=== PATIENT | male | born 1935 | race Caucasian/White ===

== ENCOUNTER 2016-05-11 14:03 | Day surgery (SDC) | payer OTHER ==
[2016-05-11 09:26] LABS: HEMATOCRIT 24.1 % (42.0-52.0); HEMOGLOBIN 7.3 g/dL (14.0-18.0); MCH 24.1 PG (27-31); MCHC 30.3 g/dL (33-37); MCV 79.5 FL (81-99); MPV 9.6 FL (7.4-10.4); RBC 3.03 XMIL (4.7-6.1)
[2016-05-11 10:25] LABS: ALBUMIN 3.6 g/dL (3.5-5.0); CALCIUM 8.8 mg/dL (8.8-10.2); TOTAL BILIRUBIN 0.27 mg/dL (0.20-1.00); TOTAL PROTEIN 6.3 g/dL (6.3-8.3)
--- NOTE | 2016-05-11 15:36 | Diag Imaging Result Document ---
PROCEDURE NAME: CHEST-2 VIEWS - 05/11/2016 2 VIEWS OF THE CHEST: FINDINGS: There is a pacemaker on the left. There is no evidence of acute cardiac or pulmonary disease. Compared to the previous study of 01/24/2016 there has been no significant change in the appearance of the chest. IMPRESSION: No acute disease.
[2016-05-11] MEDS ORDERED: NS 500 ML IV SCH (16:00)
[2016-05-11 16:15] LABS: RETIC% 1.92 % (0.8-2.1); RETIC-HE 21.3 PG (28.2-36.6)
[2016-05-11 16:29] LABS: INR 0.99; PROTIME 10.4 Seconds (9.2-11.7); PTT 27.1 Seconds (22.0-36.0)
[2016-05-11 17:18] LABS: FERRITIN 5 ng/mL (30-400)
[2016-05-11] MEDS ORDERED: LASIX IV ONE (18:11)
--- NOTE | 2016-05-11 18:58 | HISTORY AND PHYSICAL ---
CHIEF COMPLAINT: Weakness. Mr. Arreaga, an 81-year-old, white gentleman with multiple medical problems including coronary artery disease status post [place] and stent placement, congestive heart failure, diabetes mellitus, hypertension, blood-loss anemia, history of CVA, expressive aphasia, gastritis. The patient was not doing well last 2 weeks. The patient was feeling weak and dizzy, at times, lightheaded. I evaluated patient a few days ago in my office. His hemoglobin was around 8. Patient's son called me. The patient was weak and had a fall yesterday, near syncopal episode. He did have dyspnea on exertion, dizziness when he tries to get up. I got his blood work done and advised him to come to the office for evaluation. The patient had vague chest pain. He was complaining of at times blood in the stool but patient is very vague historian. I reviewed his blood test results which did reveal drop in hemoglobin which was 7.3, hematocrit 24.1. Patient does have compromised cardiopulmonary status. The patient was symptomatic. I evaluated the patient and decided to admit him for further care. The patient denied any nosebleed. Denied any headache. He does get dizzy at times, vertigo. No sore throat. Mild cough. No expectoration. No typical chest pain, orthopnea or PND. Denied abdominal pain, nausea, vomiting. No diarrhea. At times, blood in the stool. Polyuria, polydipsia. No major hypoglycemic episode. The patient does have leg swelling. No focal weakness. The patient does have history of CVA with some left-sided weakness and mild expressive aphasia. ALLERGIES: No known drug allergy. HOME MEDICATION: Patient is on insulin, Brilinta, aspirin, Lipitor, Lexapro, multivitamin, Prilosec, Actos. I do not have updated list of his medicines. PAST MEDICAL HISTORY: Coronary artery disease status post stent placement on Brilinta, diabetes mellitus on insulin, hypertension, hyperlipidemia, orthostatic hypotension, diastolic heart failure, peripheral neuropathy, history of CVA with expressive aphasia and residual minimal left- sided weakness, BPH status post TURP, chronic kidney disease, peptic ulcer disease, history of pneumonia. PERSONAL HISTORY: , lives with the . Nonsmoker. Denied alcohol or substance abuse. Fairly independent in activities of daily living. FAMILY HISTORY: Significant for sister with hypertension, CHF, diabetes. Daughter with diabetes and had bariatric surgery. REVIEW OF SYSTEMS: As per HPI. PHYSICAL EXAMINATION: GENERAL: Elderly white gentleman who does look pale in mild distress. VITAL SIGNS: Blood pressure 148/42, pulse 59, respiration 18, temperature 98.3 degrees. SKIN: Senile turgor. No rash or petechiae. HEENT: Head atraumatic, normocephalic. Pale conjunctivae. Anicteric sclerae. Extraocular muscle movement normal. Fundus cannot be penetrated. Good oral hygiene. No tonsillopharyngeal congestion or exudate. Ears and nose benign. NECK: Supple. No JVD, thyromegaly or lymphadenopathy. CHEST: Bilateral good air entry present. Bibasilar crepitation. No rales. CARDIOVASCULAR: S1 and S2 heard, 2/6 systolic murmur at the apex. ABDOMEN: Soft, globular. Bowel sounds present. No organomegaly or mass. EXTREMITIES: No cyanosis, clubbing. Minimal swelling in both the lower limbs. BLACK TOP PAVER OPERATOR: Alert, awake, able to move all 4 limbs. Patient does have minimal left-sided weakness, expressive aphasia. LAB DATA: Hemoglobin 7.3, hematocrit 24.1, WBC count 6.28, platelet count 371,000. Reticulocyte count 1.92. PT/INR 0.99. PTT 27.1, BUN 24, creatinine 1.2. ProBNP was 1039. Vitamin B12 more than 2000. Ferritin was 5. Serum iron was 12. Patient does have iron-deficiency anemia most likely, chronic blood loss. CONSIDERATION: Symptomatic anemia, most likely chronic blood loss. The patient is under care of feeder/folder. Because of his anticoagulation he did not have any GI workup done. We will transfuse him 2 units packed RBC. Monitor patient. Follow up with feeder/folder and follow up with chief recordist. Other problems includes diabetes mellitus, history of CVA, hyperlipidemia. PLAN: Overall plan discussed at length with the patient and family and they are in agreement.
[2016-05-11] MEDS ORDERED: LIPITOR PO SCH (21:00)
[2016-05-12 06:08] LABS: MANUAL DIFF NEEDED? NO
[2016-05-12 06:20] LABS: BASO% 0.3 % (0.0-0.8); EOS# 0.05 X1000 (0.0-0.7); EOS% 0.7 % (0.0-10.0); HEMATOCRIT 31.6 % (42.0-52.0); HEMOGLOBIN 10.2 g/dL (14.0-18.0); LYMPH# 0.71 X1000 (1.2-3.4); LYMPH% 10.1 % (20.5-51.1); MCH 25.3 PG (27-31); MCHC 32.3 g/dL (33-37); MCV 78.4 FL (81-99); MONO# 0.56 X1000 (0.11-0.59); NEUT% 80.9 % (42.2-75.2); PLT 318 X1000 (130-400); RBC 4.03 XMIL (4.7-6.1)
[2016-05-12 06:45] LABS: AGAP 12; ALBUMIN 3.2 g/dL (3.5-5.0); ALKALINE PHOSPHATASE 62 U/L (32-122); BUN 21 mg/dL (8-22); CALCIUM 8.6 mg/dL (8.8-10.2); CHLORIDE 101 mmol/L (98-107); COSMO 282; GOT 21 U/L (10-34); GPT 13 U/L (10-44); MAGNESIUM 1.9 mg/dL (1.5-2.7); POTASSIUM 4.5 mmol/L (3.5-5.1); SODIUM 138 mmol/L (136-145); TCO2 25 mmol/L (25-35); TOTAL BILIRUBIN 0.27 mg/dL (0.20-1.00); TOTAL PROTEIN 5.6 g/dL (6.3-8.3)
[2016-05-12] MEDS ORDERED: INSULIN PEN NEEDLES ONE (07:35)
[2016-05-12 07:45] VITALS: BP 154/50
[2016-05-12] MEDS ORDERED: CENTRUM SILVER PO SCH (09:00)
[2016-05-12] MEDS ORDERED: CALTRATE PLUS TABLET PO SCH (09:00)
[2016-05-12] MEDS ORDERED: LEXAPRO PO SCH (09:00)
[2016-05-12] MEDS ORDERED: LASIX PO SCH (09:00)
[2016-05-12] MEDS ORDERED: BRILINTA PO SCH (09:00)
[2016-05-12] MEDS ORDERED: INSULIN DEGLUDEC SUBQ SCH (09:00)
--- NOTE | 2016-05-12 11:00 | PROGRESS NOTE ---
DATE: 05/12/2016 SUBJECTIVE: Mr. Arreaga is doing better. He received 2 units of packed RBC. Patient tolerated it well. No unusual chest pain, shortness of breath. His exercise tolerance improved. Patient found to have significant iron deficiency anemia. His ferritin level was 5. I am going to refer him to Dr. Mccray for iron treatment. Because of his stent anticoagulation, patient is waiting for endoscopy. The patient is being followed up by crew team member. Once the patient is evaluated by biofuels technology manager, I am planning to discharge patient home today. No fever or chills. PHYSICAL EXAMINATION: Vital Signs: Vital signs noted. Neck: Supple. No JVD. Lungs: Bilateral good air entry present. CVS: S1 and S2 heard. Abdomen: Soft, globular. Bowel sounds present. Extremities: No cyanosis, clubbing. No acute DVT. HANDICRAFTS TEACHER: Alert, awake. Able to move all 4 limbs. Patient does have some expressive aphasia. LABS: Posttransfusion hemoglobin 10.2, hematocrit 31.6. Electrolytes were fairly benign. PLAN: Overall plan discussed with the patient and family. They are in agreement.
== END 2016-05-12 09:17 | disposition home or self-care (01) ==
LOC: DIRADM 14:03 → INF 14:03 → UNDOADMOB 14:03 → 4N 14:19 → DIRADM 14:19 → UNDODISOB 05-12 09:17 → INF 05-12 09:17
PROVIDERS: ATTEND Internal Medicine
DX: D50.9 Iron deficiency anemia, unspecified (principal); I25.10 Atherosclerotic heart disease of native coronary artery without angina pectoris; Z95.5 Presence of coronary angioplasty implant and graft; E11.22 Type 2 diabetes mellitus with diabetic chronic kidney disease; I25.2 Old myocardial infarction; I13.0 Hypertensive heart and chronic kidney disease with heart failure and stage 1 through stage 4 chronic kidney disease, or unspecified chronic kidney disease; N18.9 Chronic kidney disease, unspecified; I50.32 Chronic diastolic (congestive) heart failure; I69.320 Aphasia following cerebral infarction; K29.70 Gastritis, unspecified, without bleeding; R42 Dizziness and giddiness; M79.89 Other specified soft tissue disorders; I69.354 Hemiplegia and hemiparesis following cerebral infarction affecting left non-dominant side; G62.9 Polyneuropathy, unspecified; Z79.899 Other long term (current) drug therapy; Z79.4 Long term (current) use of insulin; Z79.02 Long term (current) use of antithrombotics/antiplatelets; Z79.82 Long term (current) use of aspirin; Z82.49 Family history of ischemic heart disease and other diseases of the circulatory system; Z83.3 Family history of diabetes mellitus
CPT/HCPCS: 71020; 80053; 82270; 82550; 82607; 82728; 82746; 82948; 83540; 83735; 83880; 84484; 85025; 85027; 85045; 85610; 85730; 86850; 86900; 86901; 86920; 94761; J1940; J7040; P9016

== ENCOUNTER 2016-06-03 11:43 | Inpatient (IN) ==
[2016-06-03 12:09] LABS: HEMATOCRIT 32.5 % (42.0-52.0); HEMOGLOBIN 10.1 g/dL (14.0-18.0); MCH 26.3 PG (27-31); MCHC 31.1 g/dL (33-37); MCV 84.6 FL (81-99); MPV 9.6 FL (7.4-10.4); RBC 3.84 XMIL (4.7-6.1)
[2016-06-03 12:44] LABS: AGAP 11; ALBUMIN 3.5 g/dL (3.5-5.0); ALKALINE PHOSPHATASE 98 U/L (32-122); BUN 27 mg/dL (8-22); CALCIUM 8.5 mg/dL (8.8-10.2); CHLORIDE 102 mmol/L (98-107); COSMO 292; GOT 25 U/L (10-34); GPT 25 U/L (10-44); POTASSIUM 5.4 mmol/L (3.5-5.1); SODIUM 140 mmol/L (136-145); TCO2 27 mmol/L (25-35); TOTAL BILIRUBIN 0.18 mg/dL (0.20-1.00); TOTAL PROTEIN 6.5 g/dL (6.3-8.3)
--- NOTE | 2016-06-03 16:58 | EKG Report ---
Test Performed on : 06/03/2016 4:28:49 PM Test Reason : Rectal bleed Blood Pressure : / mmHG Vent. Rate : 060 BPM Atrial Rate : 061 BPM P-R Int : 232 ms QRS Dur : 186 ms QT Int : 512 ms P-R-T Axes : 000 -79 087 degrees QTc Int : 512 ms AV dual-paced rhythm with prolonged AV conduction Abnormal ECG When compared with ECG of 24-JAN-2016 21:26, Electronic ventricular pacemaker has replaced Junctional rhythm. Confirmed by Hawk LEW, Steven Rivera ([id number]) on 06/04/2016 9:44:39 PM
[2016-06-03] MEDS: NS 1,000 ML IV SCH (17:51)
--- NOTE | 2016-06-03 18:34 | Diag Imaging Result Document ---
PROCEDURE NAME: CHEST-2 VIEWS - 06/03/2016 FRONTAL AND LATERAL CHEST, 2 VIEWS COMPARISON: 05/11/16 FINDINGS: The lungs are well expanded. Heart is not enlarged. The vessels are not distended. No pleural effusions. No pneumonia. The patient has a left-sided pacemaker. The appearance of the chest is unchanged from that of the prior exam. IMPRESSION: No acute abnormality.
[2016-06-03 18:37] LABS: HEMATOCRIT 32.3 % (42.0-52.0); HEMOGLOBIN 10.2 g/dL (14.0-18.0)
[2016-06-03 18:42] LABS: INR 0.99; PROTIME 10.4 Seconds (9.2-11.7); PTT 28.2 Seconds (22.0-36.0)
[2016-06-03 18:49] LABS: MAGNESIUM 2.1 mg/dL (1.5-2.7)
--- NOTE | 2016-06-03 20:49 | HISTORY AND PHYSICAL ---
CHIEF COMPLAINT: Rectal bleed. HISTORY OF PRESENT ILLNESS: An 81-year-old, white gentleman complaining of bleeding per rectum going on for 3 days, daily 3-4 times. Patient was feeling weak, tired, no energy. Getting short of breath easily. The patient claims he was feeling same way when he had symptomatic anemia a few days ago. I sent patient to hospital for blood work. His hemoglobin was around 10, hematocrit 32. Conveyed the results to the patient and family. The patient came to the office for evaluation because of the extreme fatigue, shortness of breath with exertion. I evaluated patient in the office. The patient was short of breath with exertion, feeling weak, getting dizzy when he tries to get up. I did the rectal exam and patient did have stool mixed with blood. Because of fresh blood in the rectum, patient was symptomatic, I decided to admit the patient for further care. While patient was in x-ray, he did have a weak spell. The patient does have problem with rectal bleed off and on. The patient is under care of technology solutions architect. Problem with patient is he does have coronary artery disease and stent placement. The patient is on Brilinta. The family is concerned about stopping Brilinta though his trading manager cleared him to stop it and have procedure done. I requested Gastroenterology consult with Dr. Chavarria. The patient denied any nosebleed. No gum bleeding or hematuria. The patient did have vague chest pain yesterday which subsided today. No unusual cough, expectoration, orthopnea or hemoptysis. No sore dysphagia or odynophagia. No abdominal pain. Oral intake was fair. No dysuria or hematuria. Mild leg swelling. Arthritic pain in the knee. No heat or cold intolerance. No major hypoglycemic episode. No major weight loss or weight gain. Denied being depressed, but claims concern about bleeding. No further history available at this time. ALLERGIES: No known drug allergy. HOME MEDICATIONS: Aspirin, Lipitor, multivitamin, vitamin B12. Lexapro, Lasix, Tresiba, Prilosec, Actos, MiraLAX, Brilinta. PAST MEDICAL HISTORY: 1. Significant for coronary artery disease. Recent stent placement. 2. Diabetes mellitus. 3. Gastritis and reflux disease. 4. Recurrent GI bleed. 5. Blood-loss anemia. The patient is being followed up by doubling machine operator on iron supplement. 6. Situational depression. 7. Congestive heart failure. 8. History of cerebrovascular accident. 9. Mild expressive aphasia. 10. Osteoarthritis. PERSONAL HISTORY: . Lives with the . Nonsmoker. Denied alcohol or substance abuse. FAMILY HISTORY: Noncontributory. PHYSICAL EXAMINATION: GENERAL: Elderly, white gentleman in mild distress. VITAL SIGNS: Blood pressure 170/59, pulse 69, respiration 18, temperature 97.5 degrees. SKIN: Normal turgor. No rash or petechiae. HEENT: Head atraumatic, normocephalic. [place] conjunctivae. Anicteric sclerae. Extraocular muscle movement normal. Fundus cannot be penetrated. Good oral hygiene. No tonsillopharyngeal congestion or exudate. Ears and nose benign. NECK: Supple. No JVD, thyromegaly or lymphadenopathy. CHEST: Bibasilar crepitation. No rales or rhonchi. CARDIOVASCULAR: S1 and S2 heard. 2/6 systolic murmur at the apex. ABDOMEN: Soft, globular. Bowel sounds present. No organomegaly or mass. RECTAL: I did rectal exam in my office. There was soft stool mixed with fresh blood. EXTREMITIES: No cyanosis, clubbing. Bilateral leg swelling. No acute DVT. STEM MAKER: Alert, awake, answering questions fairly well. The patient does have expressive aphasia. LABORATORY DATA/DIAGNOSTICS: Hemoglobin 10.2, hematocrit 32.3, WBC count 6.86, platelet count 307,000. PT/INR 0.99, PTT 28.2. Mild hyperkalemia. BUN 27. Creatinine 1.1. Because of chest pain, I did cardiac isoenzymes and those were benign. Magnesium level 2.1. Chest x-ray: No acute abnormality. Patient EKG: Revealed pacemaker rhythm. No acute ST-T wave changes. CONSIDERATION: 1. Lower gastrointestinal bleed. 2. Chest pain. Electrocardiogram did not show any acute interval changes. 3. Diabetes mellitus. 4. Hypertension. 5. Gastritis and reflux disease. 6. History of cerebrovascular accident. PLAN: Admit the patient. Serial hemoglobin and hematocrit. Gastroenterology consult. Monitor Accu-Chek. Fall precaution. Overall plan discussed at length with the patient and family. They are in agreement. cc: Jarvis Andrade MD
[2016-06-03] MEDS: BRILINTA PO SCH (20:57)
[2016-06-03] MEDS: LIPITOR PO SCH (20:57)
[2016-06-03] MEDS: MIRALAX PO SCH (20:57)
[2016-06-03] MEDS: PROTONIX IV SCH (20:57)
[2016-06-04 01:13] LABS: HEMATOCRIT 29.3 % (42.0-52.0); HEMOGLOBIN 9.3 g/dL (14.0-18.0)
[2016-06-04] MEDS: HUMALOG SUBQ SCH ×5 (04:43→21:30)
[2016-06-04 06:58] LABS: BASO% 0.3 % (0.0-0.8); EOS# 0.23 X1000 (0.0-0.7); EOS% 3.6 % (0.0-10.0); HEMATOCRIT 33.1 % (42.0-52.0); HEMOGLOBIN 10.5 g/dL (14.0-18.0); IMM GRAN# 0.02 X1000 (0.0-0.04); IMM GRAN% 0.3 % (0.0-0.5); LYMPH# 1.01 X1000 (1.2-3.4); LYMPH% 15.9 % (20.5-51.1); MANUAL DIFF NEEDED? YES; MCH 26.4 PG (27-31); MCHC 31.7 g/dL (33-37); MCV 83.4 FL (81-99); MONO% 7.9 % (1.7-9.3); MPV 10.4 FL (7.4-10.4); PLT 296 X1000 (130-400); RBC 3.97 XMIL (4.7-6.1)
--- NOTE | 2016-06-04 07:04 | PROGRESS NOTE ---
DATE: 06/04/2016 SUBJECTIVE: Mr. Arreaga is doing fair. He denied any significant bleeding per rectum after admission. He denied any nausea or vomiting. Blood sugar was low. The patient does feel hungry. Plan is to consider doing upper and lower GI endoscope on Tuesday. No typical chest pain. OBJECTIVE: His vital signs noted. Neck supple. No JVD. Lungs: Bilateral good air entry present. CVS: S1 and S2 heard. 2/6 systolic murmur at the apex. Abdomen soft, globular. Bowel sounds present. NAILER HAND: Alert, awake, able to move all 4 limbs. CONSIDERATION: The patient admitted with 1. Lower gastrointestinal bleed. 2. Weakness. 3. Known case of coronary artery disease. 4. Diabetes mellitus. His Accu-Chek results reviewed. EKG and chest x-ray noted. I did stop his Actos. The patient is on Brilinta. The student assistance counselor evaluated the patient. We will continue current treatment. Monitor hemoglobin and hematocrit. I am going to put him on GI soft diet. Plan is to prepare him for colonoscopy on Tuesday. We will check postural blood pressure and heart rate for precaution. Monitor him for hypoglycemia. Overall plan discussed with the patient and son. They are in agreement. cc: Jarvis Andrade MD
[2016-06-04 07:16] LABS: AGAP 7; ALKALINE PHOSPHATASE 70 U/L (32-122); BUN 19 mg/dL (8-22); CHLORIDE 106 mmol/L (98-107); COSMO 282; GOT 21 U/L (10-34); GPT 19 U/L (10-44); POTASSIUM 4.8 mmol/L (3.5-5.1); SODIUM 140 mmol/L (136-145); TCO2 27 mmol/L (25-35); TOTAL BILIRUBIN 0.31 mg/dL (0.20-1.00); TOTAL PROTEIN 5.6 g/dL (6.3-8.3)
[2016-06-04 07:40] LABS: EOS 2 % (1-10); HYPOCHROM 1+; LYMPHS 16 % (21-51); MONO 10 % (1-9)
[2016-06-04] MEDS: LASIX PO SCH (08:21)
[2016-06-04] MEDS: LEXAPRO PO SCH (08:21)
[2016-06-04] MEDS: VITAMIN B-12 SL SCH (08:21)
[2016-06-04] MEDS: BRILINTA PO SCH ×2 (08:22→21:31)
[2016-06-04] MEDS: CALTRATE 600 + D PO SCH (08:22)
--- NOTE | 2016-06-04 12:45 | CONSULTATION ---
DATE OF CONSULTATION: 06/04/2016 REASON FOR REFERRAL: Anemia, GI bleed. HISTORY OF PRESENT ILLNESS: This is an 81-year-old, white gentleman who has had some issues with anemia over the last several months. He was admitted to the hospital last month. At that time the bleeding had resolved and it was felt best to proceed with endoscopy due to his recent cardiovascular stent placement and on Brilinta but over the last week patient has had bleeding per rectum off and on. He has started to have symptoms of extreme fatigue, shortness of breath and chest pain. He presented to Dr. Andrade office yesterday and was evaluated. On rectal exam, he was found to have noted blood in the stool. He did have a weak spell where he almost passed out. He was sent over for admission for further evaluation. The patient had a myocardial infarction in January and had a cardiac stent placed by Dr. Wright. The patient has been following with Dr. Mccray over the last month. He has had 2 units of blood and he has had IV iron. Patient reports dizziness and lightheadedness. He reports symptoms of chest pain and shortness of breath. He denies nausea or vomiting. Denies hematemesis. He denies hematuria. PAST MEDICAL HISTORY: Coronary artery disease with recent stent placement in January, diabetes, history of GI bleed. History of anemia, history of depression, congestive heart failure. History of CVA and expressive aphasia. Osteoarthritis. ALLERGIES: No known drug allergies. HOME MEDICATIONS: Vitamin B 12 daily. Lexapro 5 mg daily. Vitamin C 1000 mg daily. Lipitor 20 mg every night. Aspirin 81 mg daily. Calcium plus D 1 tablet daily. Lasix 40 mg daily. Insulin 22, units daily. Prilosec 20 mg as directed. Centrum Silver 1 tab daily. Actos 15 mg daily. Brilinta 90 mg twice daily. MiraLAX every night. SOCIAL HISTORY: He is . He lives with his . Denies tobacco use. No reported alcohol use. REVIEW OF SYSTEMS: Vital Signs: Temperature 97.9 degrees, pulse 60, respirations 20, blood pressure 169/55. General: Patient is awake, alert, no acute distress. She does have expressive aphasia due to his history of stroke. HEENT: Normocephalic, atraumatic. Pupils equal, round, and reactive to light. Sclerae not icteric. Respiratory: Lung sounds essentially clear bilaterally. Cardiovascular: Regular rate and rhythm. Murmur noted. Abdomen: Soft. Positive bowel sounds. Nontender. Extremities: Bilateral lower extremity edema. DIAGNOSTIC RESULTS: Laboratory/hematology: White count 6.36, hemoglobin 10.5, hematocrit 33.1, MCV 83.4, platelets 296,000. Coagulation: Pro time 10.4, INR 0.99, PTT 28.2. Chemistry: Sodium 140, potassium 4.8, chloride 106, CO2 27, BUN 19, creatinine 0.8, glucose 102, total bilirubin 0.31, AST 21, ALT 19, alkaline phosphatase 71. ASSESSMENT/PLAN: 1. Lower gastrointestinal bleed. 2. Anemia. 3. Diabetes. 4. Coronary artery disease with history of cardiovascular stent placement and on Brilinta. 5. History of cerebrovascular accident. PLAN: Continue supportive care. Continue to monitor hemoglobin and hematocrit. Transfuse packed red blood count as needed. Monitor for active bleeding. On his last admission, we held off proceeding with endoscopy due to his recent cardiovascular stent placement and being on Brilinta but the patient continues to have bleeding. I have explained the risk of the procedures with the patient. After discussion with Dr. Chavarria, it was felt that he would need evaluation. Per 's report, Dr. Wrihgt gave his permission to go ahead and proceed with endoscopies. We will plan to proceed with EGD and colonoscopy on Tuesday. Further plans to be made according to findings. I have discussed the procedure along with the benefits and risks with the patient and family. Further plans to be made according to findings. I have discussed this case with Dr. Chavarria. Further plans to be made by him. Thank you for this consult. Dictated by DIXIE Haq for Eliel Chavarria MD cc: DIXIE Daniel MD Bharat K. Vakharia, MD
[2016-06-04] MEDS: NON-FORMULARY BULK MED SUBQ SCH (13:38)
[2016-06-04] MEDS: NS 1,000 ML IV SCH (18:38)
[2016-06-04 19:36] LABS: HEMATOCRIT 34.3 % (42.0-52.0); HEMOGLOBIN 10.9 g/dL (14.0-18.0)
[2016-06-04] MEDS: MIRALAX PO SCH ×2 (21:30→21:38)
[2016-06-04] MEDS: LIPITOR PO SCH (21:31)
[2016-06-04] MEDS: PROTONIX IV SCH (21:32)
[2016-06-05] MEDS: NS 1,000 ML IV SCH ×2 (05:04→22:24)
[2016-06-05] MEDS: HUMALOG SUBQ SCH ×3 (06:27→18:27)
[2016-06-05 06:52] LABS: HEMOGLOBIN 11.1 g/dL (14.0-18.0)
[2016-06-05 07:05] LABS: AGAP 9; ALBUMIN 3.2 g/dL (3.5-5.0); ALKALINE PHOSPHATASE 75 U/L (32-122); BUN 17 mg/dL (8-22); CALCIUM 8.4 mg/dL (8.8-10.2); CHLORIDE 107 mmol/L (98-107); COSMO 289; GOT 24 U/L (10-34); GPT 22 U/L (10-44); POTASSIUM 5.2 mmol/L (3.5-5.1); SODIUM 144 mmol/L (136-145); TCO2 28 mmol/L (25-35); TOTAL BILIRUBIN 0.26 mg/dL (0.20-1.00); TOTAL PROTEIN 6.2 g/dL (6.3-8.3)
--- NOTE | 2016-06-05 07:34 | PROGRESS NOTE ---
DATE: 06/05/2016 SUBJECTIVE: Mr. Arreaga is doing fair. Admitted with rectal bleeding. The patient had 1 bowel movement yesterday, and it did have blood in it. The patient does feel weak. No chest pain. The patient had an episode of low blood sugar last night. The patient orange juice, and the blood sugar improved. No major hypoglycemic episode. No nausea or vomiting. No high-grade fever or chills. OBJECTIVE: Vital Signs: Reviewed. The patient does have orthostatic hypotension. Neck: Supple. No JVD. Lungs: Bilateral good air entry present. Cardiovascular: S1 and S2 heard. Abdomen: Soft, globular. Bowel sounds present. Vague tenderness in the left lower quadrant. No guarding or rigidity. Extremities: No cyanosis, clubbing. No acute DVT. Central Nervous System: Alert, awake, able to move all 4 limbs. The patient does have mild expressive aphasia. LABORATORY DATA: The lab data done today, potassium 5.2, blood sugar 113, calcium was 8.4. Hemoglobin 11.1, hematocrit was 35. CONSIDERATION: 1. Gastrointestinal bleed. The patient is scheduled to have an endoscopy on Tuesday. 2. Diabetes mellitus, poorly controlled. 3. Orthostatic hypotension. We will encourage thigh-high SHAR hose. 4. History of cerebrovascular accident. 5. Coronary artery disease, on anticoagulation. PLAN: The overall plan was discussed at length with the patient, and he is in agreement. cc: Jarvis Andrade MD
[2016-06-05] MEDS: VITAMIN B-12 SL SCH (09:47)
[2016-06-05] MEDS: BRILINTA PO SCH ×2 (09:47→20:55)
[2016-06-05] MEDS: CALTRATE 600 + D PO SCH (09:47)
[2016-06-05] MEDS: LEXAPRO PO SCH (09:47)
[2016-06-05] MEDS: LASIX PO SCH (09:48)
[2016-06-05] MEDS: NON-FORMULARY BULK MED SUBQ SCH (09:49)
[2016-06-05 20:07] LABS: HEMATOCRIT 31.6 % (42.0-52.0); HEMOGLOBIN 9.9 g/dL (14.0-18.0)
[2016-06-05] MEDS: LIPITOR PO SCH (20:55)
[2016-06-05] MEDS: PROTONIX IV SCH (20:55)
[2016-06-05] MEDS: MIRALAX PO SCH (20:55)
[2016-06-05] MEDS: SODIUM CHLORIDE 0.9% INJ SCH (20:55)
[2016-06-06] MEDS: NS 1,000 ML IV SCH ×2 (03:37→16:49)
[2016-06-06] MEDS: HUMALOG SUBQ SCH ×4 (03:38→18:53)
[2016-06-06 07:46] LABS: HEMATOCRIT 31.4 % (42.0-52.0); HEMOGLOBIN 10.1 g/dL (14.0-18.0)
[2016-06-06 08:01] LABS: AGAP 8; ALBUMIN 3.1 g/dL (3.5-5.0); ALKALINE PHOSPHATASE 74 U/L (32-122); BUN 19 mg/dL (8-22); CALCIUM 8.1 mg/dL (8.8-10.2); CHLORIDE 108 mmol/L (98-107); COSMO 288; GOT 21 U/L (10-34); GPT 20 U/L (10-44); POTASSIUM 4.4 mmol/L (3.5-5.1); SODIUM 143 mmol/L (136-145); TCO2 27 mmol/L (25-35); TOTAL BILIRUBIN 0.29 mg/dL (0.20-1.00)
[2016-06-06] MEDS ORDERED: NON-FORMULARY BULK MED SUBQ SCH (09:21)
[2016-06-06] MEDS: NON-FORMULARY BULK MED SUBQ SCH (09:30)
[2016-06-06] MEDS: VITAMIN B-12 SL SCH (09:39)
[2016-06-06] MEDS: BRILINTA PO SCH ×2 (09:40→20:11)
[2016-06-06] MEDS: LEXAPRO PO SCH (09:40)
[2016-06-06] MEDS: LASIX PO SCH (09:40)
[2016-06-06] MEDS: CALTRATE 600 + D PO SCH (09:41)
[2016-06-06] MEDS ORDERED: GOLYTELY PO ONE (14:00)
--- NOTE | 2016-06-06 15:52 | PROGRESS NOTE ---
DATE: 06/06/2016 SUBJECTIVELY: Mr. Arreaga is doing better. He still has some blood in the stool. No abdominal cramps, no chest pain or palpitations. The patient is going to start GoLYTELY soon. Scheduled to have upper and lower GI endoscopy tomorrow no dysuria or hematuria. OBJECTIVE: Vital Signs: Reviewed. Neck: Supple. No. Lungs: Bibasilar crepitations. Heart: S1 and S2, heart. 2/6 systolic murmur at the apex. Abdomen: Soft, globular. Bowel sounds present. Extremities: No cyanosis, clubbing. No acute DVT. DIRECTOR OF PHYSICAL SECURITY: Alert, awake able to move all 4 limbs. LABORATORY DATA: Done today, potassium 4.4, electrolytes fairly benign. Hemoglobin 10.1, hematocrit 31.4. Hemoglobin and hematocrit is fairly stable. CONSIDERATION: Gastrointestinal bleed. Waiting for upper and lower GI endoscope results. Hyperkalemia improved coronary artery disease. Diabetes mellitus. Accu-Chek results reviewed. Overall patient is doing fair. Overall plan discussed. Discussed about fall precaution. cc: Jarvis Andrade MD
[2016-06-06 19:41] LABS: HEMATOCRIT 34.1 % (42.0-52.0); HEMOGLOBIN 11.1 g/dL (14.0-18.0)
[2016-06-06] MEDS: LIPITOR PO SCH (20:11)
[2016-06-06] MEDS: PROTONIX IV SCH (20:11)
[2016-06-06] MEDS: SODIUM CHLORIDE 0.9% INJ SCH (20:11)
[2016-06-06] MEDS: MIRALAX PO SCH (20:13)
[2016-06-07] MEDS: HUMALOG SUBQ SCH ×4 (00:38→16:56)
[2016-06-07] MEDS: NS 1,000 ML IV SCH ×2 (04:50→09:29)
--- NOTE | 2016-06-07 06:56 | PROGRESS NOTE ---
DATE: 06/07/2016 SUBJECTIVE: Mr. Arreaga is doing better. The patient got prepped for EGD and colonoscopy today. No gross bleeding per rectum. No major hypoglycemic episode. Blood sugar results reviewed. No nausea or vomiting. No typical chest pain or palpitations. OBJECTIVE: Vital Signs: Reviewed. Neck: Supple. No JVD. Lungs: Bibasilar crepitations. Heart: S1 and S2 heard. Abdomen: Soft, globular. Bowel sounds present. Extremities: No cyanosis, clubbing. No acute DVT. CIRCULATION ASSISTANT: Alert, awake able to move all 4 limbs. CONSIDERATION: 1. GI bleed. Scheduled to have EGD and colonoscopy today. 2. Coronary artery disease status post stent. 3. Diabetes mellitus. 4. Postural hypotension. PLAN: Overall plan discussed with the patient. We are holding his long-acting insulin. After reviewing the results, will make necessary recommendations. I am going to recommend thigh-high Dino Hose. Fall precaution. cc: Jarvis Andrade MD
[2016-06-07] MEDS ORDERED: NON-FORMULARY BULK MED SUBQ SCH (09:00)
[2016-06-07] MEDS: BRILINTA PO SCH (09:29)
[2016-06-07] MEDS: LASIX PO SCH (09:30)
[2016-06-07] MEDS: LEXAPRO PO SCH (09:30)
[2016-06-07] MEDS: VITAMIN B-12 SL SCH (09:30)
[2016-06-07] MEDS: NON-FORMULARY BULK MED SUBQ SCH (09:30)
[2016-06-07] MEDS: CALTRATE 600 + D PO SCH (09:31)
[2016-06-07] MEDS ORDERED: EPINEPHRINE SYRINGE ONE (13:04)
[2016-06-07] MEDS ORDERED: DIPRIVAN 1% ONE (13:39)
[2016-06-07] MEDS ORDERED: ANESTHESIA PB SET 88 IN 5742 ONE (13:55)
[2016-06-07] MEDS ORDERED: EXTENSION SET 32 IN 4522 ONE (13:55)
[2016-06-07] MEDS ORDERED: NS 1,000 ML ONE (13:55)
[2016-06-07 15:44] VITALS: BP 176/58
--- NOTE | 2016-06-08 04:05 | OPERATIVE NOTE ---
PROCEDURE DATE: 06/07/2016 PROCEDURE: Esophagogastroduodenoscopy and colonoscopy. PREOPERATIVE DIAGNOSES: 1. Gastrointestinal bleed. 2. Anemia secondary to gastrointestinal bleed. POSTOPERATIVE DIAGNOSES: 1. Normal esophagogastroduodenoscopy. 2. Diverticulosis, mild. 3. Otherwise normal esophagogastroduodenoscopy and colonoscopy. MEDICATION USED: MAC as per Anesthesia. SCOPE USED: Olympus [id number]. HISTORY: This is an 81-year-old gentleman admitted to hospital a 2nd time with a history of anemia and GI bleed. Endoscopy was done to identify the etiology and treat accordingly. PROCEDURE IN DETAIL: Informed consent was obtained from the patient. The procedure, risks, benefits, and alternatives were explained in layman's terms. He understood. All his pertinent questions were answered. The patient was brought to the endoscopy unit and was premedicated as per Anesthesia. After adequate sedation, while he was lying in the left lateral position, the gastroscope was introduced into the posterior pharynx and advanced under direct vision into the esophagus. Through the esophagus, it was advanced to the stomach. Stomach was insufflated. Pylorus identified. Scope was then passed through the pylorus into the duodenal bulb and the 2nd part of the duodenum. The scope was withdrawn, paying careful attention to details. The esophagus was normal. No esophagitis, webs, rings, varices were seen. The stomach did not reveal any ulcer, AVM, or masses, both straight and retroflexed view. The small bowel did not show any evidence of ulcer or mass, or evidence of active bleeding either. The scope was then removed. Patient was then repositioned for colonoscopy. Digital rectal exam was performed which was normal. The scope was then gently introduced into the rectum and advanced under direct vision through the parts of colon, all the way up to the cecum. The cecum was identified by ileocecal valve and appendiceal orifice. The scope was passed through the ileocecal valve into terminal ileum. About 5-8 cm of terminal ileum was examined, which was normal. The scope was withdrawn back into the cecum, back through the parts of the colon, all the way up the rectum, paying careful attention to details. Preparation was good. The visualized portion of the colon revealed scattered diverticula in the sigmoid colon, which was mild. No evidence of active bleeding or stigmata of recent bleed seen in the colon. The scope was then removed. Patient tolerated the procedure well. No complications noted. Patient was then transferred to the recovery area in a stable condition. IMPRESSION: 1. Normal esophagogastroduodenoscopy. 2. Mild diverticulosis of left colon. RECOMMENDATION: I did not see any pathology in the EGD or colon that would explain his anemia or bleeding. I did not even see internal hemorrhoids. I would start him on stool softener such as Metamucil capsules 2 every day. Advised to continue PPI low dose, Protonix or Prilosec 20 mg every day. Follow up with me after discharge. If he continues to have bleeding and anemia requiring transfusion, we will have to consider a small bowel evaluation which may include a small-bowel follow-through, x-ray, and/or his capsule endoscopy. I have explained the findings and plan to the patient's family members. They understood. All their pertinent questions were answered. cc: MD Jarvis Birmingham MD
--- NOTE | 2016-06-09 01:04 | DISCHARGE SUMMARY ---
ADMISSION DATE: 06/03/2016 DISCHARGE DATE: 06/07/2016 FINAL DISCHARGE DIAGNOSES: 1. Rectal bleed due to diverticulosis. 2. Coronary artery disease. 3. Diabetes mellitus. 4. Osteoarthritis. 5. Iron-deficiency anemia. 6. History of CVA. 7. Situational depression. 8. Congestive heart failure. HOSPITAL COURSE: Mr. Arreaga is an 81-year-old, white gentleman, admitted with rectal bleed. He had multiple episode last 3 to 4 days. The patient was getting weaker. The patient required blood transfusion recently. The patient was on Brilinta for his coronary artery disease and stent placement. Because of him being symptomatic, we decided to admit the patient for monitoring. GI consult obtained with Dr. Chavarria. He decided to do upper and lower GI endoscope. The patient's hemoglobin and hematocrit remained stable. He did not require any blood transfusion. The patient underwent upper and lower GI endoscope. EGD was benign. Colonoscopy did reveal mild diverticulosis. The patient was very eager to go home after the procedure. Advised patient to increase fiber intake, and we decided to discharge patient home. Advised patient to stop taking Actos, monitor Accu-Chek's and gradually increase his insulin. Follow up with me in 1 week. Fall precautions. Continue home medicine as explained. OVERALL DISCHARGE CONDITION: Satisfactory. LAB DATA: Revealed last hemoglobin was 11.1, hematocrit was 34.1. PT/INR 0.99, PTT was 28.2. Accu-Chek results reviewed. Electrolytes: Last potassium was 4.4, BUN 19, creatinine was 1. Magnesium checked was 2.1. DISCHARGE PLAN: Discussed at length with patient and family. They are in agreement. Discharge medicine as per separate sheet. Follow up with me in 1 week. cc: Jarvis Andrade MD
--- NOTE | 2016-06-21 01:05 | DISCHARGE SUMMARY ---
ADMISSION DATE: 06/03/2016 DISCHARGE DATE: 06/07/2016 DISCHARGE SUMMARY ADDENDUM: The patient does have chronic diastolic heart failure for which the patient is on Lasix. cc: Jarvis Andrade MD
== END 2016-06-07 18:01 | disposition home or self-care (01) ==
LOC: LABPTONLY 11:43 → DIRADM 15:39 → 3N 15:43
PROVIDERS: ADMIT Internal Medicine; ATTEND Internal Medicine